=== PATIENT | female | born 1935 | race Caucasian/White ===

== ENCOUNTER 2017-06-10 07:19 | Inpatient (IN) | payer OTHER ==
[2017-05-14 11:50] VITALS: Ht 170.2 cm; Wt 86.0 kg
--- NOTE | 2017-05-14 12:14 | PAT Medication Instructions ---
Service Date May 14, 2017. Current Home Medication List Artificial Tear Solution (Artificial Tears), 1 DROPS OP QID Cholecalciferol (Vitamin D3), 1 TAB PO QPM Fluticasone Propionate (Nasal) (Flonase Allergy Relief), 1 SPRAY KAILEE QPM Omeprazole (Prilosec), 40 MG PO DAILY PRN for Indigestion Psyllium (Metamucil), 1 CAP PO HS Tolterodine Tartrate (Detrol LA), 1 CAP PO QPM White Petrolatum-Mineral Oil (Genteal Tears Night-Time), 1 DOSE OPB Medication Instructions For Your Scheduled Surgery - Take the following medications the morning of surgery with a sip of water: Omeprazole (Prilosec), 40 MG PO DAILY PRN for Indigestion (if needed) Artificial Tear Solution (Artificial Tears), 1 DROPS OP QID - Take the following medications as scheduled the night before surgery: Psyllium (Metamucil), 1 CAP PO HS Tolterodine Tartrate (Detrol LA), 1 CAP PO QPM Fluticasone Propionate (Nasal) (Flonase Allergy Relief), 1 SPRAY KAILEE QPM Omeprazole (Prilosec), 40 MG PO DAILY PRN for Indigestion (if needed) White Petrolatum-Mineral Oil (Genteal Tears Night-Time), 1 DOSE OPB Artificial Tear Solution (Artificial Tears), 1 DROPS OP QID Cholecalciferol (Vitamin D3), 1 TAB PO QPM If you have any questions please call us at [phone] or [phone] or [phone]
[2017-05-14 13:03] LABS: BASO % 0.7 %; BASO ABS # 0.04 K/uL (0-0.2); EOS % 0.7 %; EOS ABS # 0.04 K/uL (0-0.5); HEMATOCRIT 43.1 % (37-47); HEMOGLOBIN 14.4 g/dL (12.0-16.0); IG# 0.01 K/uL (0.00-0.02); LYMPH % 24.8 %; LYMPH ABS # 1.42 K/uL (1.2-3.4); MEAN CELL VOLUME 86.7 fL (80-100); MEAN CORPUSCULAR HGB CONC 33.4 g/dl (32-36); MEAN PLATELET VOLUME 9.5 fL (7.4-10.4); MONO % 9.1 %; MONO ABS # 0.52 K/uL (0.11-0.59); NEUT % 64.5 %; PLATELET COUNT 197 K/uL (130-400); RED CELL DISTRIBUTION WIDTH CV 13.2 % (11.5-14.5); RED CELL DISTRIBUTION WIDTH SD 41.6 fL (36.4-46.3); WHITE BLOOD COUNT 5.73 K/uL (4.8-10.8)
--- NOTE | 2017-05-14 13:03 | DIAGNOSTIC IMAGING REPORT ---
TWO VIEW CHEST CLINICAL HISTORY: Preoperative examination. FINDINGS: PA and lateral chest radiographs are obtained. No prior studies are available for comparison at the time of dictation. The heart is mildly enlarged and there is atherosclerotic calcification of the thoracic aorta. The pulmonary vasculature is noncongested. Nonspecific interstitial thickening is likely chronic. No airspace consolidation or pleural effusion is identified. There is no pneumothorax. The skeletal structures are osteopenic. The bony thorax appears intact. IMPRESSION: Mild cardiac enlargement with no active disease in the chest. Electronically signed by: Jhoan Walters M.D. 05/14/2017 1:02 PM Dictated Date/Time: 05/14/2017 12:57 PM
[2017-05-14 13:35] LABS: HEMOGLOBIN A1C 5.6 % (4.5-5.6)
[2017-05-14 14:01] LABS: ALBUMIN 3.9 gm/dl (3.4-5.0); CALCIUM 9.4 mg/dl (8.5-10.1); CREATININE 0.92 mg/dl (0.60-1.20); POTASSIUM 3.9 mmol/L (3.5-5.1)
--- NOTE | 2017-05-19 20:17 | HISTORY & PHYSICAL EXAMINATION ---
DATE OF ADMISSION: 06/10/2017 CHIEF COMPLAINT: Left knee pain. HISTORY OF PRESENT ILLNESS: Ms. Greene is an 81-year-old female with multiple year history of left knee pain. The patient rates her pain as 6/10. She has pain with her daily activities. She has limited standing and walking tolerance. Pain is worse with weightbearing. The patient has had injections and home exercises over the years without relief. She has failed conservative treatment and is scheduled for left knee replacement. PAST MEDICAL HISTORY: Negative. She denies heart disease, diabetes or DVT. PAST SURGICAL HISTORY: Carpal tunnel release bilateral, right knee arthroscopy, tonsillectomy and wisdom tooth extraction. SOCIAL HISTORY: The patient denies alcohol or tobacco use. She lives in a 2-story home. She is and retired. FAMILY HISTORY: Negative for DVT. MEDICATIONS: Vitamin D 2000 units, Prilosec 40 mg, tolterodine ER 4 mg, eyedrops, Flovent Diskus and Centrum Silver. ALLERGIES: None. REVIEW OF SYSTEMS: See HPI. Ten other systems reviewed, all negative. PHYSICAL EXAMINATION: VITAL SIGNS: Height 5 foot 6 inches, weight 190 pounds. BMI is 31. GENERAL: This is a well-developed, well-nourished female who is alert and oriented x3. Mood and affect are appropriate. HEENT: Normocephalic, atraumatic. Mucous membranes are moist and intact. NECK: Supple without lymphadenopathy. HEART: Regular rate and rhythm without murmurs, rubs or gallops. LUNGS: Clear to auscultation without wheezes or rhonchi. ABDOMEN: Soft and nontender. Bowel sounds are equal and active. EXTREMITIES: No ecchymosis, redness or warmth. She has neutral alignment. Range of motion is from 0-115 degrees with no laxity. She is neurovascularly intact with +5/5 strength. She has moderate effusion. X-RAY EXAMINATION: AP and lateral views show joint space narrowing and osteophyte formation. IMPRESSION: Degenerative joint disease, left knee. PLAN: The patient will be admitted for a left total knee arthroplasty. We will plan on aspirin for DVT prophylaxis. The patient is going to have [facility] for home physical therapy.
[~2017-06-10] VITALS: Ht 170.2 cm; Wt 86.0 kg
[2017-06-10] VITALS (9 sets, daily range): BP systolic 109–148; BP diastolic 62–90; PULSE 60–86; TEMP 36.3–36.7; O2SAT 93–99
[~2017-06-10 07:19] MED LIST: ACETAMINOPHEN 500 MG TAB PO SCH; ARTISOL12 OP; ATROPINE SULFATE 0.1 MG/ML 5ML SYR IV PRN; BUPIVACAINE 0.25% 30 ML VIAL ONE; BUPIVACAINE 0.5 % 5 MG/1 ML PF 10ML VIAL ONE; CEFAZOLIN 2000MG IV PUSH 15 ML IV SCH; CEFAZOLIN 3000MG IV PUSH 22.5 ML IV SCH; CHOL20007 PO; CeleBREX 200 MG CAP PO SCH; DEXAMETHASONE 4 MG TAB PO SCH; DTRSR4 PO; EpHEDrine SULFATE INJ 50 MG/ML AMP IV PRN; FAMOTIDINE 20 MG TAB PO SCH; FLUT0.15 NAE; GABAPENTIN 300 MG CAP PO SCH; LACTATED RINGER'S 1000ML 1,000 ML IV SCH; LACTATED RINGER'S 1000ML 500 ML IV SCH; LACTATED RINGER'S 1000ML IV SCH; METOCLOPRAMIDE HCL 10 MG TAB PO SCH; ONDANSETRON INJ 2 MG/ML 2 ML VIAL IV PRN; PRLSR20 PO; PSYL0.524 PO; ROPIVACAINE 5MG/ML 30 ML 150 MG, BUPIVACAINE 0.5% MPF INJ 30 ML, EpINEphrine HCL INJ 0.... INFIL SCH; WHITOIN3 OPB
[2017-06-10] MEDS ORDERED: LIDOCAINE HCL 2% 2 ML VIAL (20MG/ML) ONE (07:55)
[2017-06-10] MEDS ORDERED: PROPOFOL IV EMULSION 10 MG/ML 20 ML VIAL IV ONE (07:55)
[2017-06-10] MEDS ORDERED: MIDAZOLAM HCL 1 MG/ML 2ML VIAL ONE (07:56)
--- NOTE | 2017-06-10 08:08 | History & Physical Bridge Note ---
H&P Re-Evaluation Bridge Note: I have examined the patient, reviewed the History & Physical and in the interval since the performance of the History & Physical I have noted the following changes of clinical significance: No changes noted
[2017-06-10] MEDS ORDERED: POVIDONE-IODINE OP SOLN 30 ML BTL ONE (08:38)
[2017-06-10] MEDS ORDERED: BACITRACIN 50000 UNIT VIAL ONE (08:38)
[2017-06-10] MEDS ORDERED: ORTHO JOINT ANESTHETIC ONE (08:38)
[2017-06-10] MEDS: TRANEXAMIC ACID INJ 1,000 MG x 2 Bags IV SCH ×4 (08:46→13:48)
--- NOTE | 2017-06-10 10:01 | [facility] Post Operative Brief Note ---
Immediate Operative Summary Operative Date Jun 10, 2017. Pre-Operative Diagnosis DJD L knee Post-Operative Diagnosis Same Procedure(s) Performed L TKA Surgeon Violet Value Stream Coach Surgeon(s) Luis Alberto Estimated Blood Loss 10cc Findings Consistent with Post-Op Diagnosis Specimens bone Anesthesia Type MAC Spinal Regional Complication(s) none Disposition Accompanied Pt To Recover: no Disposition: Recovery Room / PACU
--- NOTE | 2017-06-10 10:17 | OPERATIVE REPORT ---
DATE OF OPERATION: 06/10/2017 PREOPERATIVE DIAGNOSIS: Osteoarthritis, left knee. POSTOPERATIVE DIAGNOSIS: Osteoarthritis, left knee. PROCEDURE: Left total knee arthroplasty. SURGEON: Dr. Lazo. FIBRE COMPOSITE TECHNICIAN: Teofilo Sahu PA-C. ANESTHESIA: Spinal. COMPLICATIONS: None. OPERATION AND FINDINGS: Following induction of spinal anesthesia, the patient's left leg was prepped and draped in the usual sterile manner. Limb was exsanguinated with an Esmarch bandage and tourniquet was inflated to 350 mmHg. A longitudinal incision was made anteriorly. Subcutaneous tissue was sharply dissected. Electrocautery was used for hemostasis. Prepatellar bursa was incised and median parapatellar incision was performed. Patella was everted and the knee was flexed. Fat pad was removed to aid in visualization and the anterior and posterior cruciate ligaments were removed. The medial face of the tibia was cleared of soft tissue first with a Bovie and a Austin elevator. This tissue was retracted posteriorly using a blunt Hohmann. A Cartagena retractor was used to expose the synovium above on the anterior aspect of the femur and this was removed down to bone. The PSI guide was placed on the distal femur and two pins were placed anteriorly and kept in position and two additional pins were placed distally and removed. The distal femoral cutting block was placed in position and the distal femoral cut was used in the +0 setting. Next, the cutting block was removed and the femoral size 5 block was placed in the distal end of the femur. Care was taken to ensure appropriate external rotation and feeler gauge was used to ensure no notching would occur. The femoral block was centered on the distal femur and in the medial and lateral direction and was fixed using two bone screws. The gold pins were then removed. The oscillating saw was used to create the bone cuts and the distal femoral cutting block was removed and the reciprocating saw was used to further trim the femoral cuts as well as a deep in the area for the trochlear groove. Next, posterior condyle remnants were removed. Following this, a meniscal clamp and knife were utilized to remove the anterior portion of both medial and lateral meniscus. The proximal tibia PSI guide was placed into position and the proximal tibial cutting guide was screwed into position. The extra medullary alignment guide was utilized to ensure appropriate alignment. The proximal tibia was cut and the proximal tibial cutting block was removed and this bone fragment was removed. The appropriate guide was used to perform the notch cut on the distal femur and a lamina flatwork washer and a cochlear knife were utilized to finish both medial and lateral meniscectomies to remove any remnants of the posterior or anterior cruciate ligaments. Following this, the distal femoral component was impacted into position and blunt Santiago was used to sublux the tibia anteriorly. The proximal tibia was sized and a size 4 tibial tray was chosen as the size to be used. This was put into position and appropriate external rotation and a double check with extramedullary alignment guide was performed. The canal for the tibial stem was prepared first with a 17 mm drill and then the punch and a mallet and the trial tibial poly was placed. A tibial poly size 13 was chosen the size to be used. It was brought to extension and the patella was prepared with the patellar reamer. A patella size 36 component was chosen the size to be used. The trial component was placed and knee was taken through a full range of motion and there was found to be no lateral subluxation of the tibia. No lateral release was required. The trials were all removed. The final components were obtained and assembled. Cement was mixed. The knee was thoroughly irrigated and the ortho mix was injected about the knee joint. The final components were cemented into position. After thoroughly suctioning and drying the bone ends, all excess cement was removed. The knee was held in extension while the cement hardened. The wound was irrigated and closed over a Hemovac drain. A #1 Vicryl was used to close the extensor mechanism. Subcutaneous tissues closed using 0 Dexon. Skin was closed with dimitri. Sterile dressing of Adaptic, 4 x 4's, sterile Webril, and Ismael was applied. The patient tolerated the procedure well. Due to the complex nature of the procedure, the entire surgery was performed with the operational assistance of Teofilo Sahu PA-C. The habilitation assistant, under direct supervision, was involved in the actual performance of all aspects of the surgical procedure including hemostasis, tissue retraction and incision, instrument management, patient positioning, and wound closure. DISPOSITION: Recovery room, stable. I attest to the content of the Intraoperative Record and any orders documented therein. Any exception s are noted below.
[2017-06-10] MEDS ORDERED: CEFAZOLIN IV 2,000 MG in DEXTROSE 5% 50ML 50 ML IV SCH (10:45)
[2017-06-10] MEDS ORDERED: ALUMINUM/MAGNESIUM/SIMETH (MAALOX MAX) 30 ML UDC PO PRN (10:45)
[2017-06-10] MEDS ORDERED: ONDANSETRON INJ 2 MG/ML 2 ML VIAL IV PRN (10:45)
[2017-06-10] MEDS ORDERED: MoRPHine SULFATE 2 MG/ML CARP IV PRN (10:45)
[2017-06-10] MEDS ORDERED: BISACODYL 10 MG SUPP PR PRN (10:45)
[2017-06-10] MEDS ORDERED: MAGNESIUM HYDROXIDE SUSP 30 ML UDC PO PRN (10:45)
[2017-06-10] MEDS ORDERED: OXYCODONE HCL IR 5 MG TAB (IMMEDIATE RELEASE) PO PRN (10:45)
--- NOTE | 2017-06-10 11:11 | DIAGNOSTIC IMAGING REPORT ---
LEFT KNEE 2 VIEWS History: Left total knee arthroplasty. Degenerative arthritis. Postop. FINDINGS: The patient is status post a left total knee arthroplasty. The hardware is intact. No fracture or dislocation. Surgical drains are in place. IMPRESSION: Left total knee arthroplasty. No evidence for hardware complication. Electronically signed by: Edmar Pickett M.D. 06/10/2017 11:09 AM Dictated Date/Time: 06/10/2017 11:07 AM
--- NOTE | 2017-06-10 11:36 | Anesthesiology Progress Note ---
Anesthesia Post Op Note Date & Time Jun 10, 2017 at 11:35 Vital Signs Pain Intensity: 0 Vital Signs Past 12 Hours Date Time Temp Pulse Resp B/P (MAP) Pulse Ox O2 Delivery O2 Flow Rate FiO2 06/10/17 11:25 36.6 71 20 128/73 97 Nasal Cannula 2 Oxymask 06/10/17 11:15 71 14 135/72 97 Nasal Cannula 2 Oxymask 06/10/17 11:05 71 18 133/76 97 Nasal Cannula 2 Oxymask 06/10/17 10:55 73 16 130/70 98 Nasal Cannula 2 Oxymask 06/10/17 10:45 73 16 133/70 98 Oxymask 10 06/10/17 10:35 36.8 75 16 139/71 96 Oxymask 10 06/10/17 07:58 36.7 60 16 137/81 96 Room Air Notes Mental Status: alert / awake / arousable, participated in evaluation Pt Amnestic to Procedure: Yes Nausea / Vomiting: adequately controlled Pain: adequately controlled Airway Patency, RR, SpO2: stable & adequate BP & HR: stable & adequate Hydration State: stable & adequate Neuraxial Anesthesia: was administered, sensory block is resolving Anesthetic Complications: no major complications apparent
[2017-06-10] MEDS: D5W AND 1/2NSS + 20MEQ KCL 1,000 ML IV SCH ×2 (13:55→22:41)
[2017-06-10] MEDS: ARTIFICIAL TEARS OP SOLN OP SCH ×3 (13:56→20:42)
[2017-06-10] MEDS: FERROUS GLUCONATE 324 MG TAB PO SCH ×2 (13:56→17:53)
[2017-06-10] MEDS: ACETAMINOPHEN 500 MG TAB PO SCH (15:59)
[2017-06-10] MEDS: CEFAZOLIN IV 2,000 MG in SYRINGE 0 ML IV SCH (17:53)
[2017-06-10] MEDS: TRAMADOL HCL 50 MG TAB PO PRN (20:14)
[2017-06-10] MEDS: FLUTICASONE PROPIONATE NA SPR 16 GM BTL NAE SCH (20:42)
[2017-06-10] MEDS: PSYLLIUM 58.6% PWD PACK S\\F PO SCH (20:42)
[2017-06-10] MEDS: DOCUSATE SODIUM 100 MG CAP PO SCH (20:43)
[2017-06-10] MEDS: ASPIRIN 81 MG ECTAB PO SCH (20:43)
[2017-06-10] MEDS: TOLTERODINE TARTRATE LA 4 MG CAPCR PO SCH (20:43)
[2017-06-10] MEDS: CeleBREX 200 MG CAP PO SCH (20:44)
[2017-06-10] MEDS: SENNA 8.6 MG TAB PO SCH (20:44)
[2017-06-11] MEDS: CEFAZOLIN IV 2,000 MG in SYRINGE 0 ML IV SCH (00:13)
[2017-06-11] MEDS: ACETAMINOPHEN 500 MG TAB PO SCH ×4 (00:13→23:51)
[2017-06-11 03:14] VITALS: BP 111/67; PULSE 70; TEMP 36.6; O2SAT 94
[2017-06-11 06:46] LABS: HEMATOCRIT 35.5 % (37-47); HEMOGLOBIN 11.9 g/dL (12.0-16.0); MEAN CELL VOLUME 85.3 fL (80-100); MEAN CORPUSCULAR HEMOGLOBIN 28.6 pg (25-34); MEAN CORPUSCULAR HGB CONC 33.5 g/dl (32-36); MEAN PLATELET VOLUME 9.5 fL (7.4-10.4); PLATELET COUNT 194 K/uL (130-400); RED CELL DISTRIBUTION WIDTH CV 13.2 % (11.5-14.5); RED CELL DISTRIBUTION WIDTH SD 41.4 fL (36.4-46.3); WHITE BLOOD COUNT 13.44 K/uL (4.8-10.8)
[2017-06-11 06:54] VITALS: BP 119/69; PULSE 62; TEMP 36.5; O2SAT 96
[2017-06-11 07:19] LABS: CALCIUM 8.3 mg/dl (8.5-10.1); CREATININE 0.91 mg/dl (0.60-1.20); POTASSIUM 4.2 mmol/L (3.5-5.1)
--- NOTE | 2017-06-11 08:04 | Orthopedic Progress Note ---
Orthopedic Progress Note Date of Service Jun 11, 2017. Subjective Post OP Day: 1 Reports: feeling well, Denies: chest pain, SOB, nausea / vomiting, light headedness, calf pain Objective calves soft nontender, N/V intact, capillary refill less than 2 sec., dressing C /D/I, A&O x3, toes mobile, hemovac drainage (250/200 CC PER SHIFT) Date Time Temp Pulse Resp B/P (MAP) Pulse Ox O2 Delivery O2 Flow Rate FiO2 06/11/17 06:54 36.5 62 17 119/69 (86) 96 Room Air 06/11/17 03:14 36.6 70 16 111/67 (82) 94 Room Air 06/11/17 00:09 Room Air 06/10/17 23:12 36.7 65 16 109/62 (78) 95 Room Air 06/10/17 19:24 36.5 76 18 144/80 (101) 93 Room Air 06/10/17 16:00 Room Air 06/10/17 14:50 36.5 80 16 119/69 (86) 99 Nasal Cannula 2.0 06/10/17 13:50 36.3 86 17 134/75 (94) 97 Nasal Cannula 2.0 06/10/17 12:50 73 16 148/90 (109) 99 Nasal Cannula 2.0 06/10/17 12:20 70 16 139/88 (105) 98 Nasal Cannula 2.0 06/10/17 11:50 96 Nasal Cannula 2.0 06/10/17 11:50 96 Nasal Cannula 2.0 06/10/17 11:48 36.4 70 16 133/84 (100) 96 Nasal Cannula 2.0 06/10/17 11:35 36.6 72 20 132/84 96 Nasal Cannula 2 Oxymask 06/10/17 11:25 36.6 71 20 128/73 97 Nasal Cannula 2 Oxymask 06/10/17 11:15 71 14 135/72 97 Nasal Cannula 2 Oxymask 06/10/17 11:05 71 18 133/76 97 Nasal Cannula 2 Oxymask 06/10/17 10:55 73 16 130/70 98 Nasal Cannula 2 Oxymask 06/10/17 10:45 73 16 133/70 98 Oxymask 10 06/10/17 10:35 36.8 75 16 139/71 96 Oxymask 10 Laboratory Results 24 Hours: Test 06/11/17 06:16 Hematocrit 35.5 % Hemoglobin 11.9 g/dL Assessment & Plan Assessment: POD#1 SP LEFT TKA Plan: PT/OT DVT PROPH- ASA 81MG BID PAIN MANAGEMENT DC PLANNING- POSSIBLE DC HOME TODAY IF TOLERATES PT AND PAIN CONTROLLED. [facility] TO DC HEMOVAC.
[2017-06-11] MEDS ORDERED: RXC5 PO (08:07)
[2017-06-11] MEDS ORDERED: ACET-24 PO (08:07)
[2017-06-11] MEDS ORDERED: ONDA8TAB6 PO (08:07)
[2017-06-11] MEDS ORDERED: SENN-61 PO (08:07)
[2017-06-11] MEDS ORDERED: CLB200 PO (08:07)
[2017-06-11] MEDS ORDERED: ASPEC81 PO (08:07)
--- NOTE | 2017-06-11 08:08 | Discharge Instructions ---
Discharge Instructions Date of Service Jun 11, 2017. Admission Reason for Admission: Left Knee Osteoarthritis Discharge Discharge Diagnosis / Problem: SP LEFT TKA Discharge Goals Goal(s): Decrease discomfort, Improve function, Increase independence Activity Recommendations Activity Limitations: per Instructions/Follow-up section . Instructions / Follow-Up Instructions / Follow-Up ACTIVITY RECOMMENDATIONS: SELF CARE INSTRUCTIONS AFTER TOTAL KNEE REPLACEMENT A. You may need to continue a physical therapy program after discharge from the hospital. There are several options available to you. Your doctor will assist you in selecting the best one for you. 1. An out-patient facility 2 to 3 times a week for therapy or home therapy. 2. Continue working on all exercises taught to you in the hospital. Your goals should be to increase bending of your knee to 90 degrees and beyond and to fully straighten your knee. B. You may progress at your own pace from walking with a walker or crutches to a cane; then to no assistive devices. C. Make walking a part of your daily routine. Be up as much as comfortable with rest periods throughout the day. Rest with leg elevation is very important. Use the ice wrap frequently for the first 3-4 weeks. D. There are no restrictions on activities. You may ride in a car, shop, participate in operator lights and all social activities. E. Wear the long elastic stockings (WILMAN hose) 20 hours a day for 2 weeks after surgery. They can be removed several times a day for laundering and for a bath. F. You may shower, no tub baths until cleared by your doctor. SPECIAL CARE INSTRUCTIONS: VERY IMPORTANT TO READ AND REVIEW A. There are a few signs you need to watch for after you are home. Call [facility] if you notice any of the followin. Increased severe knee pain. Some pain is expected especially when you exercise. 2. Increased swelling in your leg or knee; pain or swelling of the calf muscle in either lower leg. 3. Any fluid drainage from the incision. 4. Shortness of breath or chest pain. B. Please call [facility] at if you have any concerns or questions about your operation or recovery. The doctor or his nurse will return your call promptly. C. You must take antibiotics before dental work, bladder, bowel or other surgery. Your doctor will provide you with a permanent care to carry describing this precaution. IMPORTANT: * REMEMBER TO TAKE ASPIRIN, 81 MG, TWICE DAILY FOR 4 WEEKS UNLESS OTHERWISE DIRECTED. THIS IS YOUR BLOOD THINNER. * HIGH RISK PATIENTS MAY BE PRESCRIBED A STRONGER BLOOD THINNER. THIS WILL BE PROVIDED AT DISCHARGE. * CALL IF INCREASED PAIN, REDNESS, DRAINAGE OR FEVER GREATER THAT 101. * WEAR WILMAN HOSE 20 HOURS PER DAY FOR 2 WEEKS. * YOU MAY HAVE A LARGE BAND-AID LIKE DRESSING (SILVERON). THIS WILL REMAIN ON YOUR INCISION FOR 7 DAYS, THEN CAN BE REMOVED. IF INCISION IS LEAKING THROUGH DRESSING, CALL THE OFFICE . FOLLOW UP VISIT: If appointment is not already scheduled: Please call [facility] to make a follow-up appointment for 2 weeks after your surgery at . Current Hospital Diet Patient's current hospital diet: Regular Diet Discharge Diet Recommended Diet: Regular Diet Procedures Procedures Performed: L TKA Pending Studies Studies pending at discharge: no Laboratory Results Hemoglobin A1c Test 05/14/17 12:29 Range/Units Estimated Average Glucose 114 mg/dl Hemoglobin A1c 5.6 4.5-5.6 % Medical Emergencies . Who to Call and When: Medical Emergencies: If at any time you feel your situation is an emergency, please call 911 immediately. . Non-Emergent Contact Non-Emergency issues call your: Surgeon . "Provider Documentation" section prepared by Shannan Mendez. .
[2017-06-11] MEDS: TRAMADOL HCL 50 MG TAB PO PRN ×2 (08:42→20:51)
[2017-06-11] MEDS: FERROUS GLUCONATE 324 MG TAB PO SCH ×3 (08:43→17:45)
[2017-06-11] MEDS: MULTIVITAMIN TAB PO SCH (08:43)
[2017-06-11] MEDS: ASPIRIN 81 MG ECTAB PO SCH ×2 (08:43→20:50)
[2017-06-11] MEDS: PANTOprazole SOD 40 MG TAB PO SCH (08:43)
[2017-06-11] MEDS: DOCUSATE SODIUM 100 MG CAP PO SCH ×2 (08:43→20:50)
[2017-06-11] MEDS: CeleBREX 200 MG CAP PO SCH ×2 (08:43→20:51)
[2017-06-11] MEDS: D5W AND 1/2NSS + 20MEQ KCL 1,000 ML IV SCH (08:44)
[2017-06-11] MEDS: ARTIFICIAL TEARS OP SOLN OP SCH ×4 (08:44→20:45)
--- NOTE | 2017-06-11 10:03 | Anesthesiology Progress Note ---
Anesthesia Post Op Note Date & Time Jun 11, 2017 at 10:03 Vital Signs Pain Intensity: 4.0 Vital Signs Past 12 Hours Date Time Temp Pulse Resp B/P (MAP) Pulse Ox O2 Delivery O2 Flow Rate FiO2 06/11/17 06:54 36.5 62 17 119/69 (86) 96 Room Air 06/11/17 03:14 36.6 70 16 111/67 (82) 94 Room Air 06/11/17 00:09 Room Air 06/10/17 23:12 36.7 65 16 109/62 (78) 95 Room Air Notes Mental Status: alert / awake / arousable, participated in evaluation Pt Amnestic to Procedure: Yes Nausea / Vomiting: adequately controlled Pain: adequately controlled Airway Patency, RR, SpO2: stable & adequate BP & HR: stable & adequate Hydration State: stable & adequate Neuraxial Anesthesia: was administered, sensory block resolved Anesthetic Complications: no major complications apparent
[2017-06-11 11:51] VITALS: BP 109/69; PULSE 64; TEMP 36.4; O2SAT 96
[2017-06-11 15:17] VITALS: BP 115/75; PULSE 63; TEMP 36.7; O2SAT 94
[2017-06-11] MEDS: FLUTICASONE PROPIONATE NA SPR 16 GM BTL NAE SCH (20:45)
[2017-06-11] MEDS: SENNA 8.6 MG TAB PO SCH (20:50)
[2017-06-11] MEDS: TOLTERODINE TARTRATE LA 4 MG CAPCR PO SCH (20:50)
[2017-06-11] MEDS: PSYLLIUM 58.6% PWD PACK S\\F PO SCH (20:50)
[2017-06-11 23:05] VITALS: BP 128/76; PULSE 62; TEMP 36.7; O2SAT 96
[2017-06-12] VITALS (7 sets, daily range): BP systolic 135–151; BP diastolic 81–85; PULSE 62–65; TEMP 36.4–36.7; O2SAT 92–96
[2017-06-12] MEDS: TRAMADOL HCL 50 MG TAB PO PRN (06:00)
[2017-06-12] MEDS ORDERED: NURSING VERBAL MED ORDER ONE (07:00)
[2017-06-12] MEDS ORDERED: HYDROCODONE/ACETAMIN 5/325MG TAB PO PRN (07:15)
[2017-06-12] MEDS: ACETAMINOPHEN 500 MG TAB PO SCH ×4 (07:53→23:51)
[2017-06-12] MEDS: FERROUS GLUCONATE 324 MG TAB PO SCH ×3 (08:30→17:45)
[2017-06-12] MEDS: MULTIVITAMIN TAB PO SCH (08:37)
[2017-06-12] MEDS: ARTIFICIAL TEARS OP SOLN OP SCH ×4 (08:37→20:55)
[2017-06-12] MEDS: DOCUSATE SODIUM 100 MG CAP PO SCH ×2 (08:38→20:53)
[2017-06-12] MEDS: PANTOprazole SOD 40 MG TAB PO SCH (08:38)
[2017-06-12] MEDS: ASPIRIN 81 MG ECTAB PO SCH ×2 (08:38→20:53)
[2017-06-12] MEDS: CeleBREX 200 MG CAP PO SCH ×2 (08:38→20:53)
--- NOTE | 2017-06-12 11:36 | Orthopedic Progress Note ---
Orthopedic Progress Note Date of Service Jun 12, 2017. Subjective Post OP Day: 2 Reports: feeling well, pain controlled w PO medications, Denies: chest pain, SOB , nausea / vomiting, light headedness, calf pain Objective calves soft nontender, capillary refill less than 2 sec., dressing C/D/I, incision C/D/I (zipline), A&O x3 Date Time Temp Pulse Resp B/P (MAP) Pulse Ox O2 Delivery O2 Flow Rate FiO2 06/12/17 07:45 Room Air 06/12/17 07:39 36.5 63 18 143/83 (103) 92 Room Air 06/12/17 06:38 62 135/85 (102) 06/12/17 00:00 Room Air 06/11/17 23:05 36.7 62 16 128/76 (93) 96 Room Air 06/11/17 16:15 Room Air 06/11/17 15:17 36.7 63 18 115/75 (88) 94 Room Air 06/11/17 11:51 36.4 64 16 109/69 (82) 96 Room Air Assessment & Plan Assessment: POD#2 SP LEFT TKA Plan: PT/OT DVT PROPH- ASA 81MG BID PAIN MANAGEMENT DC PLANNING- POSSIBLE DC HOME TODAY IF able to have a bowel movement given her discomfort AND PAIN CONTROLLED. [facility]ANT[facility] TO DC HEMOVAC. Inhouse Planning Pain Management: [place] DVT Prophylaxis: TEDs, SCDs, ASA Discharge Planning Discharge Planning: home with home health Pain Management: PO Tylenol, Oxy IR DVT Prophylaxis: TEDs, ASA Therapy: Physical Therapy
--- NOTE | 2017-06-12 20:25 | Medical Consult ---
Consultation Date of Consultation: Jun 12, 2017. Attending Physician: Deshawn Lazo M.D. Reason for Consultation: Dizziness History of Present Illness This is pleasant 81 year old female with osteoarthritis, GERD, chronic rhinosinusitis, constipation who is s/p left TKA for severe DJD. Medicine has been consulted to evaluate this patient for new onset dizziness. The patient reports that the dizziness started last night. She subjectively reports the sensation of the "room spinning". She states it is occurs independent lying/seated position or head turning. She states it is slightly worse when sitting or standing. She felt it was particularly difficulty today when she was using her walker. She denies any hearing loss or tinnitus. She has no hearing pain or discharge from the ears. She has chronic rhinosinusitis but states that it has been well controlled and she denies any nasal congestion at this time. She does note that periodically her ears get impacted and she gets some difficulty with her hearing, but she denies this currently. Her only complaint is feeling belching and burping since her operation. She denies nausea or vomiting. She denies any palpitations or chest pain. Past Medical/Surgical History GERD Consitpation Osteoarthritis Chronic Rhinosinusitis Family History No significant family history Social History Smoking Status: Never Smoker Smokeless Tobacco Use: No Alcohol Use: none Drug Use: none Allergies Coded Allergies: No Known Allergies (Unverified , 06/10/17) Home Medications Reported Home Medications Medications Dose Route/Sig Max Daily Dose Days Date Category Zofran (Ondansetron HCl) 8 Mg Tab 8 Mg PO Q8 PRN 06/11/17 Rx Senokot (Senna) 8.6 Mg Tab 17.2 Mg PO HS 14 06/11/17 Rx Oxycodone HCl 5 Mg Tab 5-10 Mg PO Q4H PRN 06/11/17 Rx Celebrex (Celecoxib) 200 Mg Cap 200 Mg PO BID 06/11/17 Rx Aspirin EC Low Dose (Aspirin) 81 Mg Ectab 81 Mg PO BID 30 06/11/17 Rx Sb Non-Aspirin Extra Stre (Acetaminophen) 500 Mg Tab 1,000 Mg PO Q8H 30 06/11/17 Rx Metamucil (Psyllium) 0.52 Gm Cap 1 Cap PO HS 05/14/17 Reported Artificial Tears (Artificial Tear Solution) 1 Maritza Maritza 1 Drops OP QID 05/14/17 Reported Genteal Tears Night-Time (White Petrolatum-Mineral Oil) 1 Oin Oin 1 Dose OPB 05/14/17 Reported Flonase Allergy Relief (Fluticasone Propionate (Nasal)) 50 Mcg/Act Spr 1 [place] KAILEE QPM 05/14/17 Reported Vitamin D3 (Cholecalciferol) 2,000 Unit Tab 1 Tab PO QPM 90 05/14/17 Reported Detrol LA (Tolterodine Tartrate) 4 Mg Capcr 1 Cap PO QPM 90 05/14/17 Reported Prilosec (Omeprazole) 20 Mg Capcr 40 Mg PO DAILY PRN 05/14/17 Reported Current Inpatient Medications Current Inpatient Medications Medications (Trade) Dose Ordered Sig/Ksenia Route Start Time Stop Time Status Last Admin Dose Admin Fluticasone Propionate (Flonase Nasal [place]) 1 sprays QPM KAILEE 06/10/17 21:00 07/10/17 20:59 Tolterodine Tartrate (Detrol LA Cap) 4 mg QPM PO 06/10/17 21:00 07/10/17 20:59 06/11/17 20:50 4 MG Artificial Tears (Artificial Tears) 1 drops QID OP 06/10/17 13:00 07/10/17 12:59 06/12/17 16:47 1 DROPS Psyllium Hydrophilic Mucilloid (Metamucil Powder) 1 pkt HS PO 06/10/17 21:00 07/10/17 20:59 06/11/17 20:50 1 PKT Morphine Sulfate (MoRPHine SULFATE INJ) 2 mg Q4HWA PRN IV 06/10/17 10:45 06/24/17 10:44 Celecoxib (CeleBREX CAP) 200 mg BID PO 06/10/17 21:00 07/10/17 20:59 06/12/17 08:38 200 MG Oxycodone HCl (Roxicodone Immediate Rel Tab) 1 TABLET FOR PAIN RATING... Q4H PRN PO 06/10/17 10:45 06/24/17 10:44 Future Hold 06/10/17 18:40 5 MG Acetaminophen (Tylenol Tab) 1,000 mg Q8H PO 06/10/17 16:00 07/10/17 15:59 06/12/17 16:23 1,000 MG Magnesium Hydroxide (Milk Of Magnesia Susp) 30 ml Q6H PRN PO 06/10/17 10:45 07/10/17 10:44 06/12/17 07:57 30 ML Bisacodyl (Dulcolax Supp) 10 mg DAILY PRN [place] 06/10/17 10:45 07/10/17 10:44 06/12/17 13:08 10 MG Senna (Senokot Tab) 17.2 mg HS PO 06/10/17 21:00 07/10/17 20:59 06/11/17 20:50 17.2 MG Docusate Sodium (coLACE CAP) 100 mg BID PO 06/10/17 21:00 07/10/17 20:59 06/12/17 08:38 100 MG Al Hydrox/Mg Hydrox/Simethicone (Maalox Max Susp) 15 ml Q4H PRN PO 06/10/17 10:45 07/10/17 10:44 Multivitamins (Multivitamin Tab) 1 tab QAM PO 06/11/17 09:00 07/11/17 08:59 06/11/17 08:43 1 TAB Ondansetron HCl (Zofran Inj) 4 mg Q6H PRN IV 06/10/17 10:45 07/10/17 10:44 Ferrous Gluconate (Ferrous Gluconate Tab) 324 mg TIDM PO 06/10/17 12:45 07/10/17 12:44 06/11/17 12:46 324 MG Pantoprazole Sodium (Protonix Tab) 40 mg QAM PO 06/11/17 09:00 07/11/17 08:59 06/12/17 08:38 40 MG Tramadol HCl (Ultram Tab) 1 tablet for pain rating... Q4H PRN PO 06/10/17 10:45 07/10/17 10:44 Future Hold 06/12/17 06:00 100 MG Aspirin (Ecotrin Tab) 81 mg BID PO 06/10/17 21:00 07/10/17 20:59 06/12/17 08:38 81 MG Acetaminophen/ Hydrocodone Bitart ([place] 5/325 Tab) `1-2 tabs for pain 1 tab ... Q6 PRN PO 06/12/17 07:15 06/26/17 07:14 Review of Systems A 10 point review of systems was negative unless stated above. Physical Exam Date Time Temp Pulse Resp B/P (MAP) Pulse Ox O2 Delivery O2 Flow Rate FiO2 06/12/17 17:21 36.4 06/12/17 16:12 147/83 (104) 06/12/17 16:00 94 Room Air 06/12/17 15:23 36.6 62 16 143/81 (101) 94 Room Air 06/12/17 07:45 Room Air 06/12/17 07:39 36.5 63 18 143/83 (103) 92 Room Air 06/12/17 06:38 62 135/85 (102) 06/12/17 00:00 Room Air 06/11/17 23:05 36.7 62 16 128/76 (93) 96 Room Air General Appearance: WD/WN, no apparent distress Head: normocephalic, atraumatic Eyes: normal inspection, EOMI, + pertinent finding (no nystagmus; epleys testing difficult) ENT: normal ENT inspection, hearing grossly normal, pharynx normal, + pertinent finding (TM with dried cerumen bilaterally; no edema in the external ear canal) Neck: supple, no adenopathy, no JVD Respiratory/Chest: lungs clear, no respiratory distress Cardiovascular: regular rate, rhythm, no gallop, no murmur Abdomen/GI: normal bowel sounds, non tender, soft Extremities/Musculoskelatal: no pedal edema Neurologic/Psych: alert, normal mood/affect, oriented x 3 Skin: normal color, warm/dry, no rash Lymphatic: no adenopathy Assessment & Plan 81 year old female day 2 s/p left TKA with new onset dizziness. The patient reports mild ongoing symptoms. Differential diagnosis includes: BPPV, Hypotension, Electrolyte abnormality, Eustachian Tube Dysfunction, Otitis Media, Menieres, CVA. Operative anesthesia records reviewed. She had spinal and adductor block with intra-operative pushes of propofol. Patient's BP was stable intra-operatively in the 140s/70s and remain as such currently. Orthostasis is certainly possible and should be checked. BPPV. I could not elicit nystagmus, though performing Epleys testing is difficult. Patients ears are both impacted with cerumen. I cannot visualize the TMs, though dizziness is extremely unlikely due to cerumen impaction. She has not symptoms on history to suggest an active inner ear infection. Her cranial nerves and grossly intact so my suspicion for CVA at this time is low though can be considered if symptoms are unremitting. Our plan recommendations are as follows: - Orthostatic vital signs - Will order H&H with lytes in the AM - PT orders will be modified to formally evaluate with Epleys +/- [place] - Will do trial of PRN Meclizine - Regarding her belching, I will order Simethicone Thank you for involving us in Mrs. Greene's care. We will continue to follow. Attending addendum: I have physically seen this patient, have supervised the medical residents activities, and agree with the H&P unless as otherwise noted. Assessment and Plan: New onset dizziness/nausea and vomiting-- Orthostatic vital signs. IV fluids. Symptomatic treatment with Zofran IV and meclizine orally. Ear irrigation to clear cerumen impaction when possible. Pantoprazole daily. No sign of acute neurologic event at this time. If any persistence or new symptoms, would order CT head without contrast. We will follow along as noted.
[2017-06-12] MEDS ORDERED: SIMETHICONE 80 MG CHEW PO PRN (20:30)
[2017-06-12] MEDS ORDERED: MECLIZINE HCL 25 MG TAB PO PRN (20:30)
[2017-06-12] MEDS: TOLTERODINE TARTRATE LA 4 MG CAPCR PO SCH (20:53)
[2017-06-12] MEDS: PSYLLIUM 58.6% PWD PACK S\\F PO SCH (20:54)
[2017-06-12] MEDS: SENNA 8.6 MG TAB PO SCH (20:54)
[2017-06-12] MEDS: FLUTICASONE PROPIONATE NA SPR 16 GM BTL NAE SCH (20:56)
[2017-06-13 05:45] LABS: HEMATOCRIT 35.5 % (37-47); HEMOGLOBIN 12.5 g/dL (12.0-16.0)
[2017-06-13 06:15] LABS: CALCIUM 9.1 mg/dl (8.5-10.1); CREATININE 0.78 mg/dl (0.60-1.20); POTASSIUM 4.4 mmol/L (3.5-5.1)
[2017-06-13] MEDS: ACETAMINOPHEN 500 MG TAB PO SCH (07:08)
[2017-06-13] MEDS ORDERED: SODIUM CHLORIDE 0.9% 1000ML 1,000 ML IV ONE (07:15)
[2017-06-13 07:36] VITALS: BP 162/93; PULSE 70; TEMP 37; O2SAT 95
[2017-06-13] MEDS: FERROUS GLUCONATE 324 MG TAB PO SCH ×2 (08:03→10:18)
[2017-06-13] MEDS: ARTIFICIAL TEARS OP SOLN OP SCH ×2 (08:03→10:18)
[2017-06-13 08:20] VITALS: BP 147/88
[2017-06-13] MEDS: MULTIVITAMIN TAB PO SCH (08:26)
[2017-06-13] MEDS: PANTOprazole SOD 40 MG TAB PO SCH (08:26)
[2017-06-13] MEDS: CeleBREX 200 MG CAP PO SCH (08:27)
[2017-06-13] MEDS: DOCUSATE SODIUM 100 MG CAP PO SCH (08:27)
[2017-06-13] MEDS: ASPIRIN 81 MG ECTAB PO SCH (08:27)
[2017-06-13 10:00] VITALS: BP 147/88; PULSE 70; TEMP 37; O2SAT 95
--- NOTE | 2017-06-13 10:29 | Family Medicine Progress Note ---
Progress Note Date of Service Jun 13, 2017. Subjective Pt evaluation today including: conversation w/ patient, physical exam, chart review, lab review, review of studies Pain: 06/12 PO Intake: WNL Voiding: no voiding problems Patient states she is feeling much better than yesterday and dizziness has essentially resolved Feels the Meclizine helped Constitutional: No fever Eyes: No worsening of vision ENT: No hearing loss Respiratory: No cough, No sputum, No wheezing, No shortness of breath, No dyspnea on exertion Cardiovascular: No chest pain Abdomen: No pain, No nausea, No vomiting, No diarrhea, No constipation Musculoskeletal: + joint pain (post op pain ) Neurologic: No weakness, No numbness/tingling, No vertigo, No balance problems Psychiatric: No depression symptoms Heme: No abnormal bleeding/bruising Endo: No fatigue Skin: No rash Medications Medications Administered Medications (Trade) Dose Ordered Sig/Ksenia Route Start Time Stop Time Status Last Admin Dose Admin Cefazolin Sodium 15 ml @ 3.75 mls/ min PREOP IV 06/10/17 06:00 06/10/17 18:00 DC 06/10/17 09:00 3.75 MLS/MIN Acetaminophen (Tylenol Tab) 1,000 mg PREOP PO 06/10/17 06:00 06/10/17 18:00 DC 06/10/17 08:25 1,000 MG Celecoxib (CeleBREX CAP) 200 mg PREOP PO 06/10/17 06:00 06/10/17 18:00 DC 06/10/17 08:26 200 MG Dexamethasone (Decadron Tab) 8 mg PREOP PO 06/10/17 06:00 06/10/17 18:00 DC 06/10/17 08:26 8 MG Famotidine (Pepcid Tab) 20 mg PREOP PO 06/10/17 06:00 06/10/17 18:00 DC 06/10/17 08:25 20 MG Gabapentin (Neurontin Cap) 300 mg PREOP PO 06/10/17 06:00 06/10/17 18:00 DC 06/10/17 08:26 300 MG Metoclopramide HCl (Reglan Tab) 10 mg PREOP PO 06/10/17 06:00 06/10/17 18:00 DC 06/10/17 08:25 10 MG Tranexamic Acid 1000 mg/Sodium Chloride 110 ml @ 660 mls/hr TODAY@06,0630 IV 06/10/17 06:00 06/10/17 06:39 DC 06/10/17 08:46 660 MLS/HR Ropivacaine 150 mg/Bupivacaine HCl 30 ml/ Epinephrine HCl 0.15 mg/Ketorolac Tromethamine 30 mg/Dexamethasone Sodium Phosphate 4 mg/Ketamine HCl 10 mg/Clonidine 100 mcg/Sodium Chloride 93.35 ml @ 0 mls/hr TODAY@06 INFIL 06/10/17 06:00 06/10/17 06:01 DC 06/10/17 10:11 93.35 MLS/HR Lactated Ringer's 500 ml @ 999 mls/hr Q31M IV 06/10/17 06:00 06/10/17 06:30 DC 06/10/17 08:24 999 MLS/HR Povidone Iodine (Betadine Ophthalmic Prep Solution) 30 ml STK-MED ONCE .ROUTE 06/10/17 08:38 06/10/17 08:39 DC 06/10/17 10:11 30 ML Bacitracin (Bacitracin Inj) 50,000 units STK-MED ONCE .ROUTE 06/10/17 08:38 06/10/17 08:39 DC 06/10/17 10:12 50,000 UNITS Fluticasone Propionate (Flonase Nasal [place]) 1 sprays QPM KAILEE 06/10/17 21:00 07/10/17 20:59 06/12/17 20:56 1 SPRAYS Tolterodine Tartrate (Detrol LA Cap) 4 mg QPM PO 06/10/17 21:00 07/10/17 20:59 06/12/17 20:53 4 MG Artificial Tears (Artificial Tears) 1 drops QID OP 06/10/17 13:00 07/10/17 12:59 06/12/17 20:55 1 DROPS Psyllium Hydrophilic Mucilloid (Metamucil Powder) 1 pkt HS PO 06/10/17 21:00 07/10/17 20:59 06/12/17 20:54 1 PKT Potassium Chloride/Dextrose/ Sod Cl 1,000 ml @ 100 mls/hr Q10H IV 06/10/17 13:30 06/11/17 13:29 DC 06/11/17 08:44 100 MLS/HR Celecoxib (CeleBREX CAP) 200 mg BID PO 06/10/17 21:00 07/10/17 20:59 06/13/17 08:27 200 MG Oxycodone HCl (Roxicodone Immediate Rel Tab) 1 TABLET FOR PAIN RATING... Q4H PRN PO 06/10/17 10:45 06/24/17 10:44 Future Hold 06/10/17 18:40 5 MG Acetaminophen (Tylenol Tab) 1,000 mg Q8H PO 06/10/17 16:00 07/10/17 15:59 06/12/17 16:23 1,000 MG Magnesium Hydroxide (Milk Of Magnesia Susp) 30 ml Q6H PRN PO 06/10/17 10:45 07/10/17 10:44 06/12/17 07:57 30 ML Bisacodyl (Dulcolax Supp) 10 mg DAILY PRN [place] 06/10/17 10:45 07/10/17 10:44 06/12/17 13:08 10 MG Senna (Senokot Tab) 17.2 mg HS PO 06/10/17 21:00 07/10/17 20:59 06/12/17 20:54 17.2 MG Docusate Sodium (coLACE CAP) 100 mg BID PO 06/10/17 21:00 07/10/17 20:59 06/13/17 08:27 100 MG Multivitamins (Multivitamin Tab) 1 tab QAM PO 06/11/17 09:00 07/11/17 08:59 06/11/17 08:43 1 TAB Ferrous Gluconate (Ferrous Gluconate Tab) 324 mg TIDM PO 06/10/17 12:45 07/10/17 12:44 06/11/17 12:46 324 MG Pantoprazole Sodium (Protonix Tab) 40 mg QAM PO 06/11/17 09:00 07/11/17 08:59 06/13/17 08:26 40 MG Tramadol HCl (Ultram Tab) 1 tablet for pain rating... Q4H PRN PO 06/10/17 10:45 07/10/17 10:44 Future Hold 06/12/17 06:00 100 MG Aspirin (Ecotrin Tab) 81 mg BID PO 06/10/17 21:00 07/10/17 20:59 06/13/17 08:27 81 MG Cefazolin Sodium 2000 mg/Syringe 15 ml @ 3.75 mls/ min Q8H IV 06/10/17 17:00 06/11/17 01:03 DC 06/11/17 00:13 3.75 MLS/MIN Meclizine HCl (Antivert Tab) 25 mg TID PRN PO 06/12/17 20:30 07/12/17 20:29 06/12/17 20:59 25 MG Simethicone (Mylicon Chew Tab) 80 mg Q6H PRN PO 06/12/17 20:30 07/12/17 20:29 06/12/17 20:58 80 MG Objective Vital Signs Date Time Temp Pulse Resp B/P (MAP) Pulse Ox O2 Delivery O2 Flow Rate FiO2 06/13/17 10:00 37.0 70 20 95 Room Air 06/13/17 08:20 147/88 (107) 06/13/17 08:00 Room Air 06/13/17 07:36 37.0 70 20 162/93 (116) 95 Room Air 06/12/17 23:50 Room Air 06/12/17 22:52 36.7 65 18 151/84 (106) 96 Room Air 06/12/17 17:21 36.4 06/12/17 16:12 147/83 (104) 06/12/17 16:00 94 Room Air 06/12/17 15:23 36.6 62 16 143/81 (101) 94 Room Air Physical Exam General Appearance: no apparent distress Eyes: normal inspection ENT: normal ENT inspection Neck: supple Respiratory/Chest: normal breath sounds, no respiratory distress, no accessory muscle use Cardiovascular: regular rate, rhythm, no murmur Abdomen: normal bowel sounds, non tender, soft Extremities: no calf tenderness, + pertinent finding (post op dressing clean on left knee, ROM appropriate for post op TKA) Neurologic/Psychiatric: alert, oriented x 3, + pertinent finding (no nystagmus ) Skin: normal color, warm/dry, no rash Lymphatic: no adenopathy Assessment and Plan This is an 81 yo f s/p left TKA POD 1 with resolved dizziness which was concerning for BPPV Dizziness/ Vertigo resolved - more likely secondary to post op changes than BPPV - Meclizine prn recommended to continue, could give 10 pills on d/c if patient requests Hyponatremia - no IV site so will defer IVF - recheck in am but unlikely cause of symptoms Recommendations as above, will sign off for now as patient has resolved symptoms , thank you for this opportunity to aid in this patient's care Resident Physician Supervision Note: I interviewed and examined the patient. Discussed with Dr. Lovelace and agree with findings and plan as documented in the note. Any exceptions or clarifications are listed here: None Patient feels well she is 100% no symptoms she does not wish to go home on any medication no further dizziness Vital signs are reviewed and are stable Neurologically she is awake alert appropriate cardiac exam is regular Assessment is likely postoperative nausea and dizziness which is resolved which could be situational related to a pain medication and postoperative state There are no further recommendations for care in this patient and there are no medical need to keep the patient hospital any further Documented By: Tirso Springer Continued [facility] stay due to: other Discharge planning: uncertain
--- NOTE | 2017-06-13 11:40 | Orthopedic Progress Note ---
Orthopedic Progress Note Date of Service Jun 13, 2017. Subjective Post OP Day: 3 Reports: feeling well, pain controlled w PO medications, Denies: chest pain, SOB , nausea / vomiting, light headedness, calf pain Objective calves soft nontender, N/V intact, capillary refill less than 2 sec., dressing C /D/I, incision C/D/I (zipline), A&O x3, toes mobile Date Time Temp Pulse Resp B/P (MAP) Pulse Ox O2 Delivery O2 Flow Rate FiO2 06/13/17 10:00 37.0 70 20 95 Room Air 06/13/17 08:20 147/88 (107) 06/13/17 08:00 Room Air 06/13/17 07:36 37.0 70 20 162/93 (116) 95 Room Air 06/12/17 23:50 Room Air 06/12/17 22:52 36.7 65 18 151/84 (106) 96 Room Air 06/12/17 17:21 36.4 06/12/17 16:12 147/83 (104) 06/12/17 16:00 94 Room Air 06/12/17 15:23 36.6 62 16 143/81 (101) 94 Room Air Laboratory Results 24 Hours: Test 06/13/17 05:25 Hematocrit 35.5 % Hemoglobin 12.5 g/dL Assessment & Plan Assessment: POD#3 SP LEFT TKA Plan: PT/OT DVT PROPH- ASA 81MG BID PAIN MANAGEMENT DC PLANNING- DC today. feeling much better. ADVANTAGE TO DC HEMOVAC. Inhouse Planning Pain Management: [place] DVT Prophylaxis: TEDs, SCDs, ASA Discharge Planning Discharge Planning: home with home health Pain Management: [place], PO Tylenol DVT Prophylaxis: TEDs, ASA Therapy: Physical Therapy
[2017-06-13] MEDS ORDERED: ANT25 PO (11:42)
[2017-06-13] MEDS ORDERED: MYL80 PO (11:42)
== END 2017-06-13 13:53 | disposition home health service (06) | DRG 470 ==
LOC: C.ACU 07:19 → C.3E 09:00 → ENRESERV 11:20
PROC: 0SRD0J9 Replacement of Left Knee Joint with Synthetic Substitute, Cemented, Open Approach (ICD-10-PCS; principal; 2017-06-10 09:30)
DX: M17.12 Unilateral primary osteoarthritis, left knee (principal); E87.1 Hypo-osmolality and hyponatremia; R42 Dizziness and giddiness; R11.2 Nausea with vomiting, unspecified; H61.23 Impacted cerumen, bilateral; K21.9 Gastro-esophageal reflux disease without esophagitis; Z98.890 Other specified postprocedural states; Z79.899 Other long term (current) drug therapy